=== PATIENT | male | born 1990 | race Caucasian/White ===

== ENCOUNTER 2017-12-18 17:58 | Observation (INO) | payer MEDICARE ==
--- NOTE | 2017-12-18 18:25 | PDOC ---
Rapid Medical Evaluation Chief Complaint: Pain, Acute Time Seen by Provider: 12/18/17 18:22 Medical Evaluation: Allergies Allergy/AdvReac Type Severity Reaction Status Date / Time No Known Allergies Allergy Verified 12/18/17 18:18 I have performed a brief in-person evaluation of this patient. The patient presents with a chief complaint of: abdominal pain today Pertinent physical exam findings: +[place] sign. +RLQ TTP I have ordered the following: labs, UA, IV The patient will proceed to the ED for further evaluation. Discharge Disposition - Diagnosis Abdominal pain - Referrals - Patient Instructions - Post Discharge Activity
[2017-12-18] MEDS ORDERED: SODIUM CHLORIDE 1,000 ML IV STA ×3 (19:13→23:03)
[2017-12-18] MEDS ORDERED: morphine CARPU-JECT 4 MG/1 ML DISP.SYRIN IVPUSH ONE (19:13)
[2017-12-18] MEDS ORDERED: ONDANSETRON 4 MG/2 ML VIAL IVPUSH ONE (19:13)
--- NOTE | 2017-12-18 19:15 | PDOC ---
History of Present Illness - General Chief Complaint: Pain, Acute Stated Complaint: STOMACH PAIN Time Seen by Provider: 12/18/17 18:22 - History of Present Illness Initial Comments: 12/18/17 19:53 The patient is a 27 year old male with no significant PMH who presents for evaluation of abdominal pain. The patient reports acute onset poorly described abdominal pain earlier today while at work with associated nausea and multiple episodes of non-bilious, non-bloody vomiting prompting his presentation to the ED for further evaluation. The patient denies similar symptoms in the past and otherwise denies fevers, chills, SOB, chest pain, or changes with urination or bowel movements. Past History - Past Medical History Allergies/Adverse Reactions: Allergies Allergy/AdvReac Type Severity Reaction Status Date / Time No Known Allergies Allergy Verified 12/18/17 18:18 Home Medications: Ambulatory Orders NK [No Known Home Medication] 12/19/17 CVA: No COPD: No DVT: No Dementia: No - Immunization History Immunization Up to Date: Yes - Suicide/Smoking/Psychosocial Hx Smoking History: Never smoked Information on smoking cessation initiated: No Hx Alcohol Use: No Drug/Substance Use Hx: No Substance Use Type: None Review of Systems - Review of Systems Comments:: 12/18/17 19:56 Constitutional: No fevers, chills, fatigue, malaise HEENT: No Rhinorrhea, nasal congestion, visual changes Cardiovascular: No chest pain, syncope, palpitations, lightheadedness Respiratory: No Cough, SOB, Hemoptysis, Gastrointestinal: Abdominal pain, nausea, vomiting. No Constipation, Diarrhea, Melena Genitourinary: No Dysuria, Frequency, Urgency, Hesitancy, Hematuria, Flank pain Musculoskeletal: No Myalgia, arthralgia Skin: No rashes, itching, bruising, pallor Neurologic: No Headache, Dizziness, Numbness, Weakness, or Tingling Psychiatric: No Hallucinations. No SI or HI *Physical Exam - Vital Signs Last Vital Signs Temp Pulse Resp BP Pulse Ox 97.4 F L 96 H 18 136/79 100 12/18/17 18:18 12/18/17 18:18 12/18/17 18:18 12/18/17 18:18 12/18/17 18:18 - Physical Exam Comments: 12/18/17 19:57 General Appearance: Nourished. In Mild Apparent Distress HEENT: No Pharyngeal Erythema, Tonsillar Exudate, Tonsillar Erythema Neck: No Cervical Lymphadenopathy Respiratory/Chest: Lungs Clear, Normal Breath Sounds. No Crackles, Rales, Rhonchi, Wheezing Cardiovascular: Regular Rhythm, Regular Rate. No Murmur, Gallops, Rubs Gastrointestinal/Abdominal: Normal Bowel Sounds, Diffuse tenderness to palpation on exam worse in the epigastrium and RLQ with mild guarding. No Rebound, Musculoskeletal: No CVA Tenderness Extremity: Normal Capillary Refill Integumentary: Normal Color, Dry, Warm Neurologic: Fully Oriented, Alert, Normal Mood/Affect, Normal Response, Heart Score/ECG Review #1 ECG reviewed & interpreted by me at: 02:34 General ECG Interpretation: Sinus Rhythm, Normal Rate, Normal Intervals, No acute ischemic changes ED Treatment Course - LABORATORY CBC & Chemistry Diagram: 12/18/17 19:42 12/18/17 19:42 Medical Decision Making - Medical Decision Making 12/18/17 19:58 The patient is a 27 year old male with no significant PMH who presents for evaluation of abdominal pain. Differential includes but is not limited to: Appendicitis, Pancreatitis, Gastritis, Cholecystitis, UTI, Infectious, Metabolic Derangement. Given the patient's history and physical exam, we will obtain a cbc, cmp, lactate, lipase, ua, abdominal ct to evaluate further for possible etiologies. We will treat in the meantime with iv fluids, zofran and morphine for pain control. We will continue to closely monitor and reassess while here in the ED. 12/19/17 01:25 CBC demonstrates an elevated wbc to 19 and lactate is elevated to 4.6. CMP and lipase are unremarkable and abdominal ct is unremarkable as read by our radiologist. The patient reports significant improvement in his symptoms and is currently asymptomatic. We will hydrate the patient with a total of 3L of NS and recheck the patients cbc and lactate. 12/19/17 02:29 Lactic acid continues to be elevated to 3.5 despite 3L of NS. Given the patient 's persistent lactic acidosis and wbc of 19, we believe he requires observation admission. We discussed the case with the hospitalist team who accepted the patient for admission. *DC/Admit/Observation/Transfer Diagnosis at time of Disposition: Lactic acid acidosis Abdominal pain Qualifiers: Abdominal location: unspecified location Qualified Code(s): R10.9 - Unspecified abdominal pain - Discharge Dispostion Condition at time of disposition: Stable Decision to Admit order: Yes - Referrals - Patient Instructions - Post Discharge Activity
[2017-12-18] MEDS ORDERED: ONDANSETRON 4 MG/2 ML VIAL ONE (19:24)
[2017-12-18 19:50] LABS: BASO % 0.5 % (0-2.0); EOS % 0.1 % (0-4.5); HEMATOCRIT 43.5 % (35.4-49); HEMOGLOBIN 14.6 GM/dL (11.7-16.9); MCH 29.7 pg (25.7-33.7); MCHC 33.5 g/dl (32.0-35.9); MEAN CELL VOLUME 88.8 fl (80-96); MEAN PLT VOLUME 8.2 fl (7.5-11.1); MONO % 4.6 % (3.8-10.2); NEUT % 85.8 % (42.8-82.8); PLATELET COUNT 433 K/MM3 (134-434); RDW 13.5 % (11.9-15.9); WHITE BLOOD COUNT 19.5 K/mm3 (4.0-10.0)
--- NOTE | 2017-12-18 20:04 | PDOC ---
Attending Attestation - HPI HPI: 12/18/17 20:51 Patient is a 27 year old male with no significant past medical history who presents to the ED with complaints of diffuse abdominal pain that began earlier this evening. Patient reports experiencing gradually increased in intensity until he was no longer able to tolerate it, prompting him to come into the ED for further evaluation. He reports experiencing associated symptoms of increased nausea, and multiple episodes of vomiting. Denies chest pain, Sob. Denies fevers,chill. Denies contact with sick individuals, out of state travelling. Denies diarrhea, constipation. Denies any other symptoms. Allergies: None Social history: No smoking. No alcohol. No illicit drugs. Surgical history: PMD: None Adult PE General: +Conducted post morphine administration. +Sleeping. No distress. Well-nourished well-developed individual, HEENT: Throat: Normal, tonsils normal, no erythema or exudate Neck: Supple, no meningeal signs, no lymphadenopathy Eyes::Pupils equal reactive and round, extraocular motion intact Chest: Nontender to palpation Cardiac: S1-S2 normal, regular rate and rhythm, no murmurs rubs or gallops Respiratory: Lungs clear to auscultation bilateral Abdomen: +Pain resolved. Soft, nondistended, normal bowel sounds, nontender to palpation diffusely Extremities: Warm, dry, no cyanosis, clubbing, or edema Skin: No rashes Neuro: Alert and oriented x3, nonfocal exam, grossly intact, normal gait Psych: Normal mood and affect <RuelSteve - Last Filed: 12/18/17 20:51> - Resident Resident Name: Alireza Allen - ED Attending Attestation I have performed the following: I have examined & evaluated the patient, The case was reviewed & discussed with the resident, I agree w/resident's findings & plan - Physicial Exam PE: 12/19/17 02:11 see HPI - Medical Decision Making 12/18/17 22:32 A portion of this note was documented by scribe services under my direction. I have reviewed the details of the note, within reason, and agree with the documentation. The case summary and management plan written by me. Assessment and plan: This is a 27-year-old male who comes in complaining of abdominal pain. Patient was seen in conjunction with the resident. Patient at time of my exam will was feeling much better however he had also received morphine. A workup was obtained including CAT scan of abdomen and pelvis which was negative. Patient's labs were remarkable for an elevated white count with left shift and elevated lactic acid. Patient hydrated with 2 L of normal saline and lactic acid were repeated with improvement to 3.7 which is still abnormal 12/19/17 00:46 Reevaluation patient remains pain-free. Patient on third liter fluid posteriorly the flu PP the CBC and lactic acid. 12/19/17 02:08 Patient's lactic acid is still 3.6 so will bring patient into an observation telemetry bed and continue to hydrate overnight and hopefully patient will be able to be sent home tomorrow. 12/19/17 02:11 <Efrem Montenegro I - Last Filed: 12/19/17 02:12>
[2017-12-18 20:07] LABS: INR 1.06 (0.83-1.09)
[2017-12-18 20:09] LABS: ACTIVATED PTT 27.1 SECONDS (25.2-36.5)
[2017-12-18 20:09] LABS: URINE APPEARANCE CLEAR; URINE BILIRUBIN NEGATIVE (<2.0 mg/dL); URINE COLOR YELLOW; URINE GLUCOSE (UA) NEGATIVE (NEGATIVE); URINE KETONE TRACE (NEGATIVE); URINE LEUK ESTERASE NEGATIVE (NEGATIVE); URINE NITRITE NEGATIVE (NEGATIVE); URINE UROBILINOGEN NEGATIVE mg/dL (0.2-1.0)
[2017-12-18 20:18] LABS: URINE PROTEIN 1+ (NEGATIVE)
[2017-12-18 20:21] LABS: ALBUMIN 4.9 g/dl (3.4-5.0); ALK PHOS 121 U/L (45-117); ANION GAP 13 (8-16); BILIRUBIN,TOTAL 0.3 mg/dL (0.2-1.0); BLOOD UREA NITROGEN 9 mg/dL (7-18); CALCIUM 9.9 mg/dL (8.5-10.1); CHLORIDE 109 mmol/L (98-107); CO2 22 mmol/L (21-32); CREATININE 0.9 mg/dL (0.7-1.3); GLUCOSE,RANDOM 122 mg/dL (74-106); LIPASE 90 U/L (73-393); SGOT/AST 11 U/L (15-37); SGPT/ALT 31 U/L (12-78); SODIUM 144 mmol/L (136-145); TOT PROT 8.6 g/dl (6.4-8.2)
[2017-12-18 20:25] LABS: URINE MUCUS FEW
[2017-12-19] MEDS ORDERED: ONDANSETRON 4 MG/2 ML VIAL IVPUSH PRN (02:43)
--- NOTE | 2017-12-19 02:48 | PN ---
Teaching Attending Note Name of Resident: Trever Borges ATTENDING PHYSICIAN STATEMENT I saw and evaluated the patient. I reviewed the resident's note and discussed the case with the resident. I agree with the resident's findings and plan as documented. SUBJECTIVE: Patient is a 27 year old male with no significant PMH who presents for evaluation of abdominal pain. The patient reports acute onset poorly described abdominal pain earlier today while at work with associated nausea and multiple episodes of non-bilious, non-bloody vomiting prompting his presentation to the ED for further evaluation. The patient denies similar symptoms in the past and otherwise denies fevers, chills, SOB, chest pain, or changes with urination or bowel movements. However, after eating in the ER his family reported that he had chills. OBJECTIVE: Alert and in no acute distress Vital Signs Period Temp Pulse Resp BP Sys/Krause Pulse Ox Last 24 Hr 97.4 F 60-96 18-18 130-136/79-80 100-100 HEENT: No Jaundice, eye redness or discharge, PERRLA, EOMI. Normocephalic, atraumatic. External ears are normal and hearing is grossly intact. No nasal discharge. Neck: Supple, nontender. No palpable adenopathy or thyromegaly. No JVD Chest: Good effort. Clear to auscultation and percussion. Heart: Regular. No S3, rub or murmur Abdomen: Not distended, soft, nontender and no HSM. No rebound or guarding. Normoactive bowel sounds. Ext: Peripheral pulses intact. No leg edema. Skin: Warm and dry. No petechiae, rash or ecchymosis. Neuro: Alert. Oriented x3. CN 2-12 grossly intact. Sensation grossly intact in all four extremities and DTR are symmetric. Home Medications Medication Instructions Recorded NK [No Known Home Medication] 12/19/17 Abnormal Lab Results 12/18/17 12/18/17 12/18/17 19:42 19:42 19:42 WBC 19.5 H Neutrophils % 85.8 H Chloride 109 H Random Glucose 122 H Lactic Acid 4.6 H* AST 11 L Alkaline Phosphatase 121 H Total Protein 8.6 H Urine Protein Urine Ketones 12/18/17 12/18/17 12/19/17 19:45 22:10 00:45 WBC Neutrophils % Chloride Random Glucose Lactic Acid 3.7 H* 3.5 H* AST Alkaline Phosphatase Total Protein Urine Protein 1+ H Urine Ketones Trace H ASSESSMENT AND PLAN: 1. Abdominal pain, lactic acidosis and Leukocytosis - Etiology of his symptoms is unclear. He is afebrile, CT abdomen shows no abnormality. 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 Though he does not look toxic and is afebrile, we are concerned about sepsis of unclear source. Will get blood cultures, check urine toxicology, hepatitis A serology and treat with IV Ancef and Flagyl. Continue IV NS at 150 ml/hour, trend LFTs and lactic acid, and consult GI and ID. Check Hba1c for prediabetes. 2. DVT prophylaxis - Heparin 5000u sq tid. 3. Advance directives - Full code
[2017-12-19 03:26] LABS: COCAINE, UR NEGATIVE ng/ml (CUTOFF=300); METHADONE, UR NEGATIVE ng/ml (CUTOFF=300); PHENCYCLIDINE,URINE NEGATIVE ng/ml (CUTOFF=25); URINE AMPHETAMINES NEGATIVE ng/ml (CUTOFF=500); URINE BARBITURATES NEGATIVE ng/ml (CUTOFF=200); URINE BENZODIAZEPINES NEGATIVE ng/ml (CUTOFF=200)
[2017-12-19 03:28] LABS: OPIATES, URI POSITIVE ng/ml (CUTOFF=300)
[2017-12-19 03:59] VITALS: BMI 27.1
[2017-12-19] MEDS ORDERED: SODIUM CHLORIDE 1,000 ML IV SCH (04:15)
[2017-12-19] MEDS ORDERED: DEXTROSE 5%-WATER - 50 ML IVPB ONE ×2 (04:23→09:12)
[2017-12-19] MEDS ORDERED: ceFAZolin SODIUM 1 GM VIAL ONE ×2 (04:23→09:11)
--- NOTE | 2017-12-19 04:39 | HP ---
<Larissa Prabhakar - Last Filed: 12/19/17 08:06> CHIEF COMPLAINT: PCP: HISTORY OF PRESENT ILLNESS: ER course was notable for: (1) (2) (3) Recent Travel: PAST MEDICAL HISTORY: PAST SURGICAL HISTORY: Social History: Smoking: Alcohol: Drugs: Family History: Allergies No Known Allergies Allergy (Verified 12/18/17 18:18) HOME MEDICATIONS: Home Medications Medication Instructions Recorded NK [No Known Home Medication] 12/19/17 REVIEW OF SYSTEMS CONSTITUTIONAL: Absent: fever, chills, diaphoresis, generalized weakness, malaise, loss of appetite, weight change HEENT: Absent: rhinorrhea, nasal congestion, throat pain, throat swelling, difficulty swallowing, mouth swelling, ear pain, eye pain, visual changes CARDIOVASCULAR: Absent: chest pain, syncope, palpitations, irregular heart rate, lightheadedness , peripheral edema RESPIRATORY: Absent: cough, shortness of breath, dyspnea with exertion, orthopnea, wheezing, stridor, hemoptysis GASTROINTESTINAL: Absent: abdominal pain, abdominal distension, nausea, vomiting, diarrhea, constipation, melena, hematochezia GENITOURINARY: Absent: dysuria, frequency, urgency, hesitancy, hematuria, flank pain, genital pain MUSCULOSKELETAL: Absent: myalgia, arthralgia, joint swelling, back pain, neck pain SKIN: Absent: rash, itching, pallor HEMATOLOGIC/IMMUNOLOGIC: Absent: easy bleeding, easy bruising, lymphadenopathy, frequent infections ENDOCRINE: Absent: unexplained weight gain, unexplained weight loss, heat intolerance, cold intolerance NEUROLOGIC: Absent: headache, focal weakness or paresthesias, dizziness, unsteady gait, seizure, mental status changes, bladder or bowel incontinence PSYCHIATRIC: Absent: anxiety, depression, suicidal or homicidal ideation, hallucinations. PHYSICAL EXAMINATION Vital Signs - 24 hr 12/18/17 12/18/17 12/18/17 18:18 19:30 22:11 Temperature 97.4 F L Pulse Rate 96 H Pulse Rate [ 60 Apical] Respiratory 18 18 Rate Blood Pressure 136/79 Blood Pressure 130/80 [Right Arm] O2 Sat by Pulse 100 100 Oximetry (%) 12/19/17 12/19/17 12/19/17 03:53 04:52 06:45 Temperature 99.1 F 98.6 F Pulse Rate 78 61 Pulse Rate [ Apical] Respiratory 18 18 18 Rate Blood Pressure 139/81 123/73 Blood Pressure [Right Arm] O2 Sat by Pulse 100 Oximetry (%) GENERAL: Awake, alert, and fully oriented, in no acute distress. HEAD: Normal with no signs of trauma. EYES: Pupils equal, round and reactive to light, extraocular movements intact, sclera anicteric, conjunctiva clear. No lid lag. EARS, NOSE, THROAT: Ears normal, nares patent, oropharynx clear without exudates. Moist mucous membranes. NECK: Normal range of motion, supple without lymphadenopathy, JVD, or masses. LUNGS: Breath sounds equal, clear to auscultation bilaterally. No wheezes, and no crackles. No accessory muscle use. HEART: Regular rate and rhythm, normal S1 and S2 without murmur, rub or gallop. ABDOMEN: Soft, nontender, not distended, normoactive bowel sounds, no guarding, no rebound, no masses. No hepatomegaly or splenomegaly. MUSCULOSKELETAL: Normal range of motion at all joints. No bony deformities or tenderness. No CVA tenderness. UPPER EXTREMITIES: 2+ pulses, warm, well-perfused. No cyanosis. No clubbing. No peripheral edema. LOWER EXTREMITIES: 2+ pulses, warm, well-perfused. No calf tenderness. No peripheral edema. NEUROLOGICAL: Cranial nerves II-XII intact. Normal speech. Normal gait. PSYCHIATRIC: Cooperative. Good eye contact. Appropriate mood and affect. SKIN: Warm, dry, normal turgor, no rashes or lesions noted, normal capillary refill. Laboratory Results - last 24 hr 12/18/17 12/18/17 12/18/17 19:30 19:42 19:42 WBC 19.5 H RBC 4.90 Hgb 14.6 Hct 43.5 MCV 88.8 MCH 29.7 MCHC 33.5 RDW 13.5 Plt Count 433 MPV 8.2 Absolute Neuts (auto) 16.7 Neutrophils % 85.8 H Lymphocytes % 9.0 Monocytes % 4.6 Eosinophils % 0.1 Basophils % 0.5 Nucleated RBC % 0 PT with INR 12.00 INR 1.06 PTT (Actin FS) 27.1 Sodium 144 Potassium 4.0 Chloride 109 H Carbon Dioxide 22 Anion Gap 13 BUN 9 Creatinine 0.9 Creat Clearance w eGFR > 60 Random Glucose 122 H Lactic Acid Calcium 9.9 Phosphorus Magnesium Total Bilirubin 0.3 AST 11 L ALT 31 Alkaline Phosphatase 121 H Total Protein 8.6 H Albumin 4.9 Lipase 90 Urine Color Urine Appearance Urine pH Ur Specific Commerce Urine Protein Urine Glucose (UA) Urine Ketones Urine Blood Urine Nitrite Urine Bilirubin Urine Urobilinogen Ur Leukocyte Esterase Urine WBC (Auto) Urine RBC (Auto) Urine Mucus Opiates Screen Methadone Screen Barbiturate Screen Phencyclidine Screen Ur Amphetamines Screen MDMA (Ecstasy) Screen Benzodiazepines Screen Cocaine Screen U Marijuana (THC) Screen 12/18/17 12/18/17 12/18/17 19:42 19:45 22:10 WBC RBC Hgb Hct MCV MCH MCHC RDW Plt Count MPV Absolute Neuts (auto) Neutrophils % Lymphocytes % Monocytes % Eosinophils % Basophils % Nucleated RBC % PT with INR INR PTT (Actin FS) Sodium Potassium Chloride Carbon Dioxide Anion Gap BUN Creatinine Creat Clearance w eGFR Random Glucose Lactic Acid 4.6 H* 3.7 H* Calcium Phosphorus Magnesium Total Bilirubin AST ALT Alkaline Phosphatase Total Protein Albumin Lipase Urine Color Yellow Urine Appearance Clear Urine pH 6.0 Ur Specific Commerce 1.030 Urine Protein 1+ H Urine Glucose (UA) Negative Urine Ketones Trace H Urine Blood Negative Urine Nitrite Negative Urine Bilirubin Negative Urine Urobilinogen Negative Ur Leukocyte Esterase Negative Urine WBC (Auto) 1 Urine RBC (Auto) 3 Urine Mucus Few Opiates Screen Methadone Screen Barbiturate Screen Phencyclidine Screen Ur Amphetamines Screen MDMA (Ecstasy) Screen Benzodiazepines Screen Cocaine Screen U Marijuana (THC) Screen 12/19/17 12/19/17 12/19/17 00:45 02:41 06:00 WBC 17.1 H RBC 4.30 Hgb 13.1 Hct 38.2 MCV 88.9 MCH 30.4 MCHC 34.3 RDW 13.5 Plt Count 333 D MPV 8.2 Absolute Neuts (auto) Neutrophils % Lymphocytes % Monocytes % Eosinophils % Basophils % Nucleated RBC % PT with INR INR PTT (Actin FS) Sodium Potassium Chloride Carbon Dioxide Anion Gap BUN Creatinine Creat Clearance w eGFR Random Glucose Lactic Acid 3.5 H* Calcium Phosphorus Magnesium Total Bilirubin AST ALT Alkaline Phosphatase Total Protein Albumin Lipase Urine Color Urine Appearance Urine pH Ur Specific Commerce Urine Protein Urine Glucose (UA) Urine Ketones Urine Blood Urine Nitrite Urine Bilirubin Urine Urobilinogen Ur Leukocyte Esterase Urine WBC (Auto) Urine RBC (Auto) Urine Mucus Opiates Screen Positive Methadone Screen Negative Barbiturate Screen Negative Phencyclidine Screen Negative Ur Amphetamines Screen Negative MDMA (Ecstasy) Screen Negative Benzodiazepines Screen Negative Cocaine Screen Negative U Marijuana (THC) Screen Positive 12/19/17 06:00 WBC RBC Hgb Hct MCV MCH MCHC RDW Plt Count MPV Absolute Neuts (auto) Neutrophils % Lymphocytes % Monocytes % Eosinophils % Basophils % Nucleated RBC % PT with INR INR PTT (Actin FS) Sodium 139 Potassium 3.6 Chloride 103 Carbon Dioxide 26 Anion Gap 10 BUN 7 Creatinine 0.8 Creat Clearance w eGFR > 60 Random Glucose 91 D Lactic Acid Calcium 9.0 Phosphorus 3.4 Magnesium 1.9 Total Bilirubin AST ALT Alkaline Phosphatase Total Protein Albumin Lipase Urine Color Urine Appearance Urine pH Ur Specific Commerce Urine Protein Urine Glucose (UA) Urine Ketones Urine Blood Urine Nitrite Urine Bilirubin Urine Urobilinogen Ur Leukocyte Esterase Urine WBC (Auto) Urine RBC (Auto) Urine Mucus Opiates Screen Methadone Screen Barbiturate Screen Phencyclidine Screen Ur Amphetamines Screen MDMA (Ecstasy) Screen Benzodiazepines Screen Cocaine Screen U Marijuana (THC) Screen ASSESSMENT/PLAN: Hospitalist Screening - Colonoscopy Questionnaire Colonoscopy Questionnaire: Colonoscopy Questionnaire <Trever Borges - Last Filed: 12/21/17 16:48> CHIEF COMPLAINT: nausea, vomiting, abdominal pain PCP: HISTORY OF PRESENT ILLNESS: 27 yo male with no significant PMH presents with complaint of nausea, vomiting, and diffuse abdominal pain that began a few hours before he presented to the ED. He states he had not eaten yet today and had some cantaloupe juice. He stated he then felt nauseas, and vomited non blood non bilious fluid multiple times for about an hour. He states his pain worsened during the vomiting, but improved afterwards. When I saw him, he stated that his pain has mostly resolved and that he is no longer nauseas and has not vomited since arrival to the ED. Denies fever, chills, headache, cough, chest pain, SOB, urinary frequency, dysuria. ER course was notable for: (1) WBC 19.5, Lactic acid 4.6 -> 3.5 after 3 L NS (2) CT noted - no acute abdominal pathology (3) Recent Travel: none PAST MEDICAL HISTORY: None reported PAST SURGICAL HISTORY: None reported Social History: Smoking: states he occasionally smokes cigarettes Alcohol: social, a few drinks per week Drugs: Marijuana use, denies any other drug use Family History: Allergies No Known Allergies Allergy (Verified 12/18/17 18:18) HOME MEDICATIONS: Home Medications Medication Instructions Recorded NK [No Known Home Medication] 12/19/17 REVIEW OF SYSTEMS CONSTITUTIONAL: Absent: fever, chills, diaphoresis, generalized weakness, malaise, loss of appetite, weight change HEENT: Absent: rhinorrhea, nasal congestion, throat pain, throat swelling, difficulty swallowing, mouth swelling, ear pain, eye pain, visual changes CARDIOVASCULAR: Absent: chest pain, syncope, palpitations, irregular heart rate, lightheadedness , peripheral edema RESPIRATORY: Absent: cough, shortness of breath, dyspnea with exertion, orthopnea, wheezing, stridor, hemoptysis GASTROINTESTINAL: Absent: abdominal pain, abdominal distension, nausea, vomiting, diarrhea, constipation, melena, hematochezia GENITOURINARY: Absent: dysuria, frequency, urgency, hesitancy, hematuria, flank pain, genital pain MUSCULOSKELETAL: Absent: myalgia, arthralgia, joint swelling, back pain, neck pain SKIN: Absent: rash, itching, pallor HEMATOLOGIC/IMMUNOLOGIC: Absent: easy bleeding, easy bruising, lymphadenopathy, frequent infections ENDOCRINE: Absent: unexplained weight gain, unexplained weight loss, heat intolerance, cold intolerance NEUROLOGIC: Absent: headache, focal weakness or paresthesias, dizziness, unsteady gait, seizure, mental status changes, bladder or bowel incontinence PSYCHIATRIC: Absent: anxiety, depression, suicidal or homicidal ideation, hallucinations. PHYSICAL EXAMINATION Vital Signs - 24 hr 12/18/17 12/18/17 12/18/17 18:18 19:30 22:11 Temperature 97.4 F L Pulse Rate 96 H Pulse Rate [ 60 Apical] Respiratory 18 18 Rate Blood Pressure 136/79 Blood Pressure 130/80 [Right Arm] O2 Sat by Pulse 100 100 Oximetry (%) 12/19/17 03:53 Temperature 99.1 F Pulse Rate 78 Pulse Rate [ Apical] Respiratory 18 Rate Blood Pressure 139/81 Blood Pressure [Right Arm] O2 Sat by Pulse Oximetry (%) GENERAL: A&O, no acute distress HEAD: Normocephalic, atraumatic. EYES: PERRL, EOMI, no scleral icterus EARS, NOSE, THROAT: oropharynx clear without exudates. Moist mucous membranes. NECK: supple without lymphadenopathy LUNGS: CTA b/l, no crackles or wheezes HEART: Regular rate and rhythm, normal S1 and S2 without murmur, rub or gallop. ABDOMEN: Soft nontender to palpation, normoactive bowel sounds MUSCULOSKELETAL: No bony deformities or tenderness. No CVA tenderness. UPPER EXTREMITIES: 2+ pulses, warm, well-perfused. No cyanosis. No clubbing. No peripheral edema. LOWER EXTREMITIES: 2+ pulses, warm, well-perfused. No calf tenderness. No peripheral edema. NEUROLOGICAL: Cranial nerves II-XII grossly intact. Normal speech. Normal gait observed PSYCHIATRIC: Cooperative. Good eye contact. Appropriate mood and affect. SKIN: Warm, dry, normal turgor, no rashes or lesions noted Laboratory Results - last 24 hr 12/18/17 12/18/17 12/18/17 19:30 19:42 19:42 WBC 19.5 H RBC 4.90 Hgb 14.6 Hct 43.5 MCV 88.8 MCH 29.7 MCHC 33.5 RDW 13.5 Plt Count 433 MPV 8.2 Absolute Neuts (auto) 16.7 Neutrophils % 85.8 H Lymphocytes % 9.0 Monocytes % 4.6 Eosinophils % 0.1 Basophils % 0.5 Nucleated RBC % 0 PT with INR 12.00 INR 1.06 PTT (Actin FS) 27.1 Sodium 144 Potassium 4.0 Chloride 109 H Carbon Dioxide 22 Anion Gap 13 BUN 9 Creatinine 0.9 Creat Clearance w eGFR > 60 Random Glucose 122 H Lactic Acid Calcium 9.9 Total Bilirubin 0.3 AST 11 L ALT 31 Alkaline Phosphatase 121 H Total Protein 8.6 H Albumin 4.9 Lipase 90 Urine Color Urine Appearance Urine pH Ur Specific [place] Urine Protein Urine Glucose (UA) Urine Ketones Urine Blood Urine Nitrite Urine Bilirubin Urine Urobilinogen Ur Leukocyte Esterase Urine WBC (Auto) Urine RBC (Auto) Urine Mucus Opiates Screen Methadone Screen Barbiturate Screen Phencyclidine Screen Ur Amphetamines Screen MDMA (Ecstasy) Screen Benzodiazepines Screen Cocaine Screen U Marijuana (THC) Screen 12/18/17 12/18/17 12/18/17 19:42 19:45 22:10 WBC RBC Hgb Hct MCV MCH MCHC RDW Plt Count MPV Absolute Neuts (auto) Neutrophils % Lymphocytes % Monocytes % Eosinophils % Basophils % Nucleated RBC % PT with INR INR PTT (Actin FS) Sodium Potassium Chloride Carbon Dioxide Anion Gap BUN Creatinine Creat Clearance w eGFR Random Glucose Lactic Acid 4.6 H* 3.7 H* Calcium Total Bilirubin AST ALT Alkaline Phosphatase Total Protein Albumin Lipase Urine Color Yellow Urine Appearance Clear Urine pH 6.0 Ur Specific Commerce 1.030 Urine Protein 1+ H Urine Glucose (UA) Negative Urine Ketones Trace H Urine Blood Negative Urine Nitrite Negative Urine Bilirubin Negative Urine Urobilinogen Negative Ur Leukocyte Esterase Negative Urine WBC (Auto) 1 Urine RBC (Auto) 3 Urine Mucus Few Opiates Screen Methadone Screen Barbiturate Screen Phencyclidine Screen Ur Amphetamines Screen MDMA (Ecstasy) Screen Benzodiazepines Screen Cocaine Screen U Marijuana (THC) Screen 12/19/17 12/19/17 00:45 02:41 WBC RBC Hgb Hct MCV MCH MCHC RDW Plt Count MPV Absolute Neuts (auto) Neutrophils % Lymphocytes % Monocytes % Eosinophils % Basophils % Nucleated RBC % PT with INR INR PTT (Actin FS) Sodium Potassium Chloride Carbon Dioxide Anion Gap BUN Creatinine Creat Clearance w eGFR Random Glucose Lactic Acid 3.5 H* Calcium Total Bilirubin AST ALT Alkaline Phosphatase Total Protein Albumin Lipase Urine Color Urine Appearance Urine pH Ur Specific Commerce Urine Protein Urine Glucose (UA) Urine Ketones Urine Blood Urine Nitrite Urine Bilirubin Urine Urobilinogen Ur Leukocyte Esterase Urine WBC (Auto) Urine RBC (Auto) Urine Mucus Opiates Screen Positive Methadone Screen Negative Barbiturate Screen Negative Phencyclidine Screen Negative Ur Amphetamines Screen Negative MDMA (Ecstasy) Screen Negative Benzodiazepines Screen Negative Cocaine Screen Negative U Marijuana (THC) Screen Positive ASSESSMENT/PLAN: 27 yo male with no PMH placed in observation with abdominal pain, n/v, elevated lactate and elevated WBC count, pain, n/v have mostly resolved. 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 - New Patient This patient is new to me today: Yes Date on this admission: 12/21/17 - Critical Care Critical Care patient: No Hospitalist Screening - Colonoscopy Questionnaire Colonoscopy Questionnaire: Colonoscopy Questionnaire - Patient: 50 - 75 years old and never had a screening colonoscopy: No History of colon or rectal polyps, or CA: No History of IBD, Crohn's disease or UC: No History of abdominal radiation therapy as a child: No - Relative: 1 with colon or rectal CA, or polyps at age 60 or younger: No Colon or rectal CA diagnosed at age 45 or younger: No Multiple relatives with colon or rectal CA: No - Outcome: Screening Result: Negative Screen
[2017-12-19] MEDS: CEFAZOLIN 1 GM in DEXTROSE 5%-WATER - 50 ML IVPB SCH ×2 (05:43→09:24)
[2017-12-19 07:22] LABS: HEMATOCRIT 38.2 % (35.4-49); HEMOGLOBIN 13.1 GM/dL (11.7-16.9); MCH 30.4 pg (25.7-33.7); MCHC 34.3 g/dl (32.0-35.9); MEAN CELL VOLUME 88.9 fl (80-96); MEAN PLT VOLUME 8.2 fl (7.5-11.1); PLATELET COUNT 333 K/MM3 (134-434); RDW 13.5 % (11.9-15.9); WHITE BLOOD COUNT 17.1 K/mm3 (4.0-10.0)
[2017-12-19 07:51] LABS: ANION GAP 10 (8-16); BLOOD UREA NITROGEN 7 mg/dL (7-18); CHLORIDE 103 mmol/L (98-107); CO2 26 mmol/L (21-32); CREATININE 0.8 mg/dL (0.7-1.3); GLUCOSE,RANDOM 91 mg/dL (74-106); MAGNESIUM 1.9 mg/dL (1.8-2.4); PHOSPHOROUS 3.4 mg/dL (2.5-4.9); POTASSIUM 3.6 mmol/L (3.5-5.1); SODIUM 139 mmol/L (136-145)
--- NOTE | 2017-12-19 11:18 | PN ---
Progress Note (short form) - Note Progress Note: ID consult dictated imp/reccd 27 year old man originally from [facility] [place], history of ETOH use admitted for sudden onset of vomiting yesterday accompanied by abdominal pain no diarrhea no fevers lactic acid high leukocytosis both resolving with IVF appears well no further abdominal pain or vomiting ct scan abp/pelvis no acute process identified-gallbladder OK suggest ?gastroenteritis continue IVF f/u blood cultures HIV testing d/c antibiotics repeat cbc in am Problem List - Problems (1) Gastroenteritis Code(s): K52.9 - NONINFECTIVE GASTROENTERITIS AND COLITIS, UNSPECIFIED (2) Lactic acid acidosis Code(s): E87.2 - ACIDOSIS
--- NOTE | 2017-12-19 13:08 | CON.GI ---
Consult Consult Specialty:: GI Reason for Consultation:: Nause, vomiting - History of Present Illness History of Present Illness: Chart reviewed. Events noted Per initial ntake: 27 yo male with no significant PMH presents with complaint of nausea, vomiting, and diffuse abdominal pain that began a few hours before he presented to the ED. He states he had not eaten yet today and had some cantaloupe juice. He stated he then felt nauseas, and vomited non blood non bilious fluid multiple times for about an hour. He states his pain worsened during the vomiting, but improved afterwards. When I saw him, he stated that his pain has mostly resolved and that he is no longer nauseas and has not vomited since arrival to the ED. Denies fever, chills, headache, cough, chest pain, SOB, urinary frequency, dysuria. ER course was notable for: (1) WBC 19.5, Lactic acid 4.6 -> 3.5 after 3 L NS (2) CT noted - no acute abdominal pathology At the time of this encounter, the pt was not in distress, or discomfort. Reported resolution of the above symptoms. No prior history of the same. No family, or personal history of IBD, chronic GI issues. No weight loss, melena, hematochezia, fever, chills, jaundice. The above symptoms had acute onset. WBC and lactate remain elevated, although better. Normal abdominal exam. Tolerating diet. - History Source History Provided By: Patient, Medical Record - Alcohol/Substance Use Hx Alcohol Use: No - Smoking History Smoking history: Current every day smoker Have you smoked in the past 12 months: Yes Aproximately how many cigarettes per day: 1 Home Medications - Allergies Allergies/Adverse Reactions: Allergies Allergy/AdvReac Type Severity Reaction Status Date / Time No Known Allergies Allergy Verified 12/18/17 18:18 - Home Medications Home Medications: Ambulatory Orders NK [No Known Home Medication] 12/19/17 Family Disease History - Family Disease History Family History: Unremarkable Review of Systems Findings/Remarks: as per hpi, h&p, ed Physical Exam-GI Vital Signs: Vital Signs Temperature 98.3 F 12/19/17 10:00 Pulse Rate 73 12/19/17 10:00 Respiratory Rate 16 12/19/17 10:00 Blood Pressure 136/71 12/19/17 10:00 O2 Sat by Pulse Oximetry (%) 100 12/19/17 04:52 Labs: CBC, BMP 12/19/17 06:00 12/19/17 06:00 INR, PTT INR 1.06 (0.83-1.09) 12/18/17 19:30 Imaging - Results Cat Scan: Report Reviewed Problem List - Problems (1) Gastroenteritis Code(s): K52.9 - NONINFECTIVE GASTROENTERITIS AND COLITIS, UNSPECIFIED Assessment/Plan A27M with acute onset of nausea, vomiting and abdominal pain. Asymptomatic with normal abdominal exam. Acute gastroenteritis PO hydration. ?need for abx. BRAT diet and observe CBC in am
[2017-12-19] MEDS ORDERED: SODIUM CHLORIDE 1,000 ML IV STA (13:11)
[2017-12-19] MEDS: SODIUM CHLORIDE 1,000 ML IV SCH ×2 (13:33→17:29)
--- NOTE | 2017-12-19 19:14 | CONS ---
INFECTIOUS DISEASE CONSULTATION DATE OF CONSULTATION: 12/19/2017 REQUESTING PHYSICIAN: The hospitalist service. This is a 27-year-old male originally from [facility]. He has been here for 5 years. He works in a restaurant. He has a history of intermittent alcohol use. He was out drinking on Friday night. Friday, he was off from work. On , he arrived at work, and he had an episode of vomiting. His restaurant mates gave him some cantaloupe juice to drink. He drank the cantaloupe juice and continued to vomit. He had severe abdominal pain with it and presented to the emergency room. There was no diarrhea. There were no fevers. In the ER, he was noted to have leukocytosis and elevated lactic acid. He had a CAT scan done that showed no acute process. PAST MEDICAL HISTORY: Unremarkable. MEDICATIONS: He takes no medications. He has never been hospitalized. ALLERGIES: He has no known drug allergies. SOCIAL HISTORY: He occasionally smokes marijuana, and he drinks alcohol intermittently. When he drinks, he drinks 10 beers. He works in a restaurant. He is here from [facility]. He has been here for 5 years. FAMILY HISTORY: Noncontributory. REVIEW OF SYSTEMS: He denies HIV risk factors. He is agreeable to HIV testing. His vomiting has resolved as has his abdominal pain. PHYSICAL EXAMINATION: General: He is awake and alert. Vital Signs: Temperature is 98.1. Pulse is 74, blood pressure 135/87. Respiratory rate is 18. He is saturating 99% on room air. HEENT: He is normocephalic. His eyes are anicteric. Neck: Supple. Lungs: Clear to auscultation. Heart: Regular rate and rhythm. Abdomen: Soft, nontender. Extremities: Without edema. Skin: He has no rash. LABORATORY DATA: White count on admission was 19.5. Hemoglobin was normal as was platelets. This morning 17.1. Lactic acid was as high as 4.6, but has now improved to 2.2. His urinalysis is negative, and urine and blood cultures are pending. In summary, this is a 27-year-old man with gastroenteritis with resolved vomiting and abdominal pain. I suspect it is a reactive leukocytosis and will resolve. Cultures have been sent, which we can follow up. I would recommend HIV testing and stop his antibiotics at this time. Diet to be advanced as tolerated. Further recommendations to follow. MARGARET WEISS M.D. GRACIE/[id number]
[2017-12-19 19:41] LABS: ANION GAP 8 (8-16); BILIRUBIN,TOTAL 0.6 mg/dL (0.2-1.0); BLOOD UREA NITROGEN 7 mg/dL (7-18); CALCIUM 8.9 mg/dL (8.5-10.1); CHLORIDE 106 mmol/L (98-107); CO2 26 mmol/L (21-32); CREATININE 0.8 mg/dL (0.7-1.3); GLUCOSE,RANDOM 119 mg/dL (74-106); POTASSIUM 3.7 mmol/L (3.5-5.1); SGOT/AST 10 U/L (15-37); SGPT/ALT 27 U/L (12-78); SODIUM 140 mmol/L (136-145); TOT PROT 7.2 g/dl (6.4-8.2)
[2017-12-19 19:42] LABS: ALK PHOS 106 U/L (45-117)
[2017-12-20 07:11] LABS: BASO % 0.7 % (0-2.0); EOS % 1.9 % (0-4.5); HEMATOCRIT 37.4 % (35.4-49); LYMPH % 29.7 % (8-40); MCH 30.5 pg (25.7-33.7); MCHC 34.7 g/dl (32.0-35.9); MEAN PLT VOLUME 7.9 fl (7.5-11.1); MONO % 8.8 % (3.8-10.2); NEUT % 58.9 % (42.8-82.8); PLATELET COUNT 327 K/MM3 (134-434); RBC 4.25 M/mm3 (4.00-5.60); RDW 13.3 % (11.9-15.9); WHITE BLOOD COUNT 10.1 K/mm3 (4.0-10.0)
[2017-12-20] MEDS: SODIUM CHLORIDE 1,000 ML IV SCH ×2 (07:30→13:44)
[2017-12-20 07:45] LABS: CHLORIDE 105 mmol/L (98-107); POTASSIUM 4.2 mmol/L (3.5-5.1); SODIUM 139 mmol/L (136-145)
[2017-12-20 07:57] LABS: ALBUMIN 3.8 g/dl (3.4-5.0); ALK PHOS 96 U/L (45-117); ANION GAP 7 (8-16); BILIRUBIN,TOTAL 0.6 mg/dL (0.2-1.0); BLOOD UREA NITROGEN 7 mg/dL (7-18); CALCIUM 8.9 mg/dL (8.5-10.1); CO2 27 mmol/L (21-32); CREATININE 0.7 mg/dL (0.7-1.3); GLUCOSE,RANDOM 93 mg/dL (74-106); MAGNESIUM 2.1 mg/dL (1.8-2.4); SGOT/AST 14 U/L (15-37); SGPT/ALT 27 U/L (12-78)
--- NOTE | 2017-12-20 09:13 | EKG ---
Test Reason : Blood Pressure : / mmHG Vent. Rate : 066 BPM Atrial Rate : 066 BPM P-R Int : 134 ms QRS Dur : 102 ms QT Int : 400 ms P-R-T Axes : 062 069 051 degrees QTc Int : 419 ms NORMAL SINUS RHYTHM WITH SINUS ARRHYTHMIA NORMAL ECG NO PREVIOUS ECGS AVAILABLE Confirmed by JOSUE WILEY, DIRK ([id number]) on 12/20/2017 9:13:43 AM Referred By: Confirmed By:DIRK SALAS MD
[2017-12-20 14:12] LABS: HEP A AB, IGM Negative (Negative)
[2017-12-20 14:20] VITALS: BP 143/86; PULSE 56; TEMP 98.2
--- NOTE | 2017-12-20 14:57 | DS ---
Physical Exam: SUBJECTIVE: Patient seen and examined OBJECTIVE: Vital Signs Period Temp Pulse Resp BP Sys/Krause Pulse Ox Last 24 Hr 98.1 F-98.9 F 54-74 18-18 123-143/64-88 99-100 PHYSICAL EXAM GENERAL: The patient is awake, alert, and fully oriented, in no acute distress. HEAD: Normal with no signs of trauma. EYES: PERRL, extraocular movements intact, sclera anicteric, conjunctiva clear. ENT: Ears normal, nares patent, oropharynx clear without exudates, moist mucous membranes. NECK: Trachea midline, full range of motion, supple. LUNGS: Breath sounds equal, clear to auscultation bilaterally, no wheezes, no crackles, no accessory muscle use. HEART: Regular rate and rhythm, S1, S2 without murmur, rub or gallop. ABDOMEN: Soft, nontender, nondistended, normoactive bowel sounds, no guarding, no rebound, no hepatosplenomegaly, no masses. EXTREMITIES: 2+ pulses, warm, well-perfused, no edema. NEUROLOGICAL: Cranial nerves II through XII grossly intact. Normal speech, gait not observed. PSYCH: Normal mood, normal affect. SKIN: Warm, dry, normal turgor, no rashes or lesions noted. LABS Laboratory Results - last 24 hr 12/19/17 12/19/17 12/19/17 07:25 18:10 18:10 WBC RBC Hgb Hct MCV MCH MCHC RDW Plt Count MPV Absolute Neuts (auto) Neutrophils % Lymphocytes % Monocytes % Eosinophils % Basophils % Nucleated RBC % Sodium 140 Potassium 3.7 Chloride 106 Carbon Dioxide 26 Anion Gap 8 BUN 7 Creatinine 0.8 Creat Clearance w eGFR > 60 Random Glucose 119 H D Hemoglobin A1c % Lactic Acid 2.7 H* Calcium 8.9 Magnesium Total Bilirubin 0.6 AST 10 L ALT 27 Alkaline Phosphatase 106 D Creatine Kinase 104 Total Protein 7.2 Albumin 4.0 Hep A IgM Ab Confirm Negative Hepatitis A Ab Total Positive H 12/20/17 12/20/17 12/20/17 06:00 06:00 06:00 WBC 10.1 H RBC 4.25 Hgb 13.0 Hct 37.4 MCV 88.0 MCH 30.5 MCHC 34.7 RDW 13.3 Plt Count 327 MPV 7.9 Absolute Neuts (auto) 5.9 Neutrophils % 58.9 D Lymphocytes % 29.7 D Monocytes % 8.8 D Eosinophils % 1.9 D Basophils % 0.7 Nucleated RBC % 0 Sodium 139 Potassium 4.2 Chloride 105 Carbon Dioxide 27 Anion Gap 7 L BUN 7 Creatinine 0.7 Creat Clearance w eGFR > 60 Random Glucose 93 D Hemoglobin A1c % Lactic Acid 1.3 Calcium 8.9 Magnesium 2.1 Total Bilirubin 0.6 AST 14 L D ALT 27 Alkaline Phosphatase 96 D Creatine Kinase Total Protein 7.0 Albumin 3.8 Hep A IgM Ab Confirm Hepatitis A Ab Total 12/20/17 06:00 WBC RBC Hgb Hct MCV MCH MCHC RDW Plt Count MPV Absolute Neuts (auto) Neutrophils % Lymphocytes % Monocytes % Eosinophils % Basophils % Nucleated RBC % Sodium Potassium Chloride Carbon Dioxide Anion Gap BUN Creatinine Creat Clearance w eGFR Random Glucose Hemoglobin A1c % 5.4 Lactic Acid Calcium Magnesium Total Bilirubin AST ALT Alkaline Phosphatase Creatine Kinase Total Protein Albumin Hep A IgM Ab Confirm Hepatitis A Ab Total HOSPITAL COURSE: Date of Admission:12/19/17 Date of Discharge: 12/20/17 Minutes to complete discharge: 35 Discharge Summary Reason For Visit: ABDOMINAL PAIN LACTIC ACIDOSIS Current Active Problems Abdominal pain (Acute) Gastroenteritis (Acute) Lactic acid acidosis (Acute) Condition: Improved - Instructions Diet, Activity, Other Instructions: Drink plenty of fluids. Be sure to wash your hands frequently and always after going to the bathroom. Return to the emergency department for any new or worsening symptoms. Disposition: HOME - Home Medications Comprehensive Discharge Medication List: Ambulatory Orders NK [No Known Home Medication] 12/19/17 This patient is new to me today: No Emergency Visit: Yes ED Registration Date: 12/19/17 Care time: The patient presented to the Emergency Department on the above date and was hospitalized for further evaluation of their emergent condition. Critical Care patient: No - Discharge Referral Referred to [facility] No
== END 2017-12-20 16:00 | disposition home or self-care (01) ==
LOC: JER 17:58 → JERBED 12-19 02:17 → UNDOADMOB 12-19 02:41 → JERBED 12-19 02:41 → J7W 12-19 03:46
PROVIDERS: ADMIT Internal Medicine; ATTEND Nurse Practitioner Acute Care
PROC: 3E03329 Introduction of Other Anti-infective into Peripheral Vein, Percutaneous Approach (ICD-10-PCS; principal; 2017-12-19)
PROC: 3E033NZ Introduction of Analgesics, Hypnotics, Sedatives into Peripheral Vein, Percutaneous Approach (ICD-10-PCS; 2017-12-19)
PROC: 3E033GC Introduction of Other Therapeutic Substance into Peripheral Vein, Percutaneous Approach (ICD-10-PCS; 2017-12-19)
PROC: 3E0337Z Introduction of Electrolytic and Water Balance Substance into Peripheral Vein, Percutaneous Approach (ICD-10-PCS; 2017-12-19)
DX: E87.2 Acidosis (principal); R10.9 Unspecified abdominal pain; D72.829 Elevated white blood cell count, unspecified; K52.9 Noninfective gastroenteritis and colitis, unspecified; R11.2 Nausea with vomiting, unspecified; F11.90 Opioid use, unspecified, uncomplicated; F12.90 Cannabis use, unspecified, uncomplicated
CPT/HCPCS: 36415; 71045-TC-FY; 74177-TC; 80048; 80053; 80307; 81003; 81015; 82550; 83036; 83605; 83690; 83735; 84100; 85025; 85027; 85610; 85730; 86708; 87040; 87045; 87046; 87086; 87177; 87209; 87389; 93005; 93010; 96361; 96374; 96375; 99285-25; G0378; J7030